=== PATIENT | male | born 1965 | race Caucasian/White ===

== ENCOUNTER 2019-07-07 06:18 | Day surgery (SDC) | payer BC ==
[~2019-07-07] VITALS: Ht 190.5 cm; Wt 200.1 kg
[~2019-07-07 06:18] MED LIST: ACET250 PO; CYAN100; Cafergot Table1 EACH PO; FISH1000; GABA600 PO; HYDMOR2 PO; MAGCHL64ER; Mobic15 MG PO; Multiple Vitam1 EAC1; NIAC250ER; OMEP20ER PO; Prednisone50 MG PO; Viagra100 MG
--- NOTE | 2019-07-07 07:51 | NUR ---
07/07/19 0751 Selwyn Michelle DISCHARGE INSTRUCTIONS REVIEWED WITH PT AND SPOUSE.PT RESTING COMFORTABLY WITH CALL LIGHT IN REACH.
--- NOTE | 2019-07-07 09:56 | NUR ---
07/07/19 0955 Avis Coelho PT TRANSFERRED INTO THE RECLINER WITH STAND BY ASSIST FROM RN. JAMES. PT IS ACCOMPANIED BY HIS . PT DENIES NAUSEA. PT RATES PAIN 2/10 AT THE OP SITE. POLAR UNIT IS ON AND RUNNING. PT IS TOLERATING PO FLUIDS AND SNACKS WELL.
== END 2019-07-07 10:45 | disposition home or self-care (01) ==
LOC: ORSCSDS 06:18
PROVIDERS: Orthopaedic Surgery
PROC: 0RNJ4ZZ Release Right Shoulder Joint, Percutaneous Endoscopic Approach (ICD-10-PCS; principal; 2019-07-07 07:30)
PROC: 0RQJ4ZZ Repair Right Shoulder Joint, Percutaneous Endoscopic Approach (ICD-10-PCS; principal; 2019-07-07 07:30)
DX: M75.41 Impingement syndrome of right shoulder (principal); S43.431A Superior glenoid labrum lesion of right shoulder, initial encounter; S46.111A Strain of muscle, fascia and tendon of long head of biceps, right arm, initial encounter; G47.33 Obstructive sleep apnea (adult) (pediatric); Z79.899 Other long term (current) drug therapy; K21.9 Gastro-esophageal reflux disease without esophagitis
CPT/HCPCS: J0171; J0690; J0696; J0735; J1100; J1885; J2250; J2405; J2704; J2710; J2795; J3010; J7120

== ENCOUNTER 2020-04-27 07:37 | Day surgery (SDC) | payer BC ==
[~2020-04-27] VITALS: Ht 190.5 cm; Wt 84.7 kg
== END 2020-04-27 10:08 | disposition home or self-care (01) ==
LOC: ORSCSDS 07:37
PROVIDERS: Student in an Organized Health Care Education/Training Program
PROC: 0DBH8ZX Excision of Cecum, Via Natural or Artificial Opening Endoscopic, Diagnostic (ICD-10-PCS; principal; 2020-04-27 09:00)
PROC: 0DBL8ZX Excision of Transverse Colon, Via Natural or Artificial Opening Endoscopic, Diagnostic (ICD-10-PCS; principal; 2020-04-27 09:00)
PROC: 0DBN8ZX Excision of Sigmoid Colon, Via Natural or Artificial Opening Endoscopic, Diagnostic (ICD-10-PCS; principal; 2020-04-27 09:00)
PROC: 0DBK8ZX Excision of Ascending Colon, Via Natural or Artificial Opening Endoscopic, Diagnostic (ICD-10-PCS; principal; 2020-04-27 09:00)
DX: Z12.11 Encounter for screening for malignant neoplasm of colon (principal); Z86.010 Personal history of colon polyps; D12.2 Benign neoplasm of ascending colon; D12.0 Benign neoplasm of cecum; D12.3 Benign neoplasm of transverse colon; K63.5 Polyp of colon; K64.8 Other hemorrhoids; G47.33 Obstructive sleep apnea (adult) (pediatric); Z85.46 Personal history of malignant neoplasm of prostate; F17.210 Nicotine dependence, cigarettes, uncomplicated; Z79.899 Other long term (current) drug therapy
CPT/HCPCS: 88305; J2704; J7120

== ENCOUNTER 2021-12-20 10:51 | Day surgery (SDC) | payer BC ==
[~2021-12-20] VITALS: Ht 190.5 cm; Wt 90.9 kg
[2021-12-20] MEDS ORDERED: CELECOXIB200 M1 PO (11:41)
[2021-12-20] MEDS ORDERED: OMEP20ER PO (11:41)
--- NOTE | 2021-12-20 14:07 | NUR ---
12/20/21 1407 Selwyn Michelle 1MG OF EPI ADDED TO EACH OF THE FIRST 3 BAGS OF LR USED FOR JOINT IRRIGATION.
== END 2021-12-20 15:51 | disposition home or self-care (01) ==
LOC: ORSCSDS 10:51
PROVIDERS: Orthopaedic Surgery
PROC: 0LU24JZ Supplement Left Shoulder Tendon with Synthetic Substitute, Percutaneous Endoscopic Approach (ICD-10-PCS; principal; 2021-12-20 12:30)
PROC: 0RNK4ZZ Release Left Shoulder Joint, Percutaneous Endoscopic Approach (ICD-10-PCS; principal; 2021-12-20 12:30)
PROC: 0LS44ZZ Reposition Left Upper Arm Tendon, Percutaneous Endoscopic Approach (ICD-10-PCS; principal; 2021-12-20 12:30)
PROC: 0LQ24ZZ Repair Left Shoulder Tendon, Percutaneous Endoscopic Approach (ICD-10-PCS; principal; 2021-12-20 12:30)
DX: M75.112 Incomplete rotator cuff tear or rupture of left shoulder, not specified as traumatic (principal); S46.002A Unspecified injury of muscle(s) and tendon(s) of the rotator cuff of left shoulder, initial encounter; M75.22 Bicipital tendinitis, left shoulder; M75.42 Impingement syndrome of left shoulder; G47.33 Obstructive sleep apnea (adult) (pediatric); K21.9 Gastro-esophageal reflux disease without esophagitis; G62.9 Polyneuropathy, unspecified; Z79.899 Other long term (current) drug therapy
CPT/HCPCS: A9270; C1713; J0171; J0690; J1100; J2250; J2405; J2704; J3010; J7060; J7120

== ENCOUNTER 2024-01-21 09:19 | Emergency (ER) | payer SELFPAY ==
[~2024-01-21] VITALS: Ht 190.5 cm; Wt 93.0 kg
[~2024-01-21 09:19] MED LIST changes: +CELECOXIB200 M1 PO; +Cyclobenzaprine5 MG; +ENBREL MIN50 MG/1 M1; +MELO7.5; +SILD50TA
[2024-01-21] MEDS ORDERED: Ketorolac Tromethamine 30mg Vial IV ONE (09:55)
[2024-01-21] MEDS ORDERED: Diazepam 5 MG / ML 2ML SYR IV ONE (09:55)
[2024-01-21] MEDS ORDERED: HYDROmorphone HCl/Pf 1MG SYR IV ONE (09:55)
[2024-01-21] MEDS ORDERED: Norco 10-325 T1 EACH PO (10:17)
[2024-01-21] MEDS ORDERED: Prednisone20 MG PO (10:17)
[2024-01-21] MEDS ORDERED: Robaxin750 MG PO (10:17)
[2024-01-21 11:15] VITALS: BP 109/70
== END 2024-01-21 11:39 | disposition home or self-care (01) ==
LOC: ER 09:19
DX: M54.50 Low back pain, unspecified (principal); G89.29 Other chronic pain; Z88.2 Allergy status to sulfonamides; Z79.899 Other long term (current) drug therapy
CPT/HCPCS: J1170; J1885; J3360

== ENCOUNTER 2025-02-16 14:09 | Emergency (ER) | payer SELFPAY ==
[~2025-02-16] VITALS: Ht 190.5 cm; Wt 90.7 kg
[~2025-02-16 14:09] MED LIST changes: +Norco 10-325 T1 EACH PO; +Prednisone20 MG PO; +Robaxin750 MG PO
[2025-02-16 15:12] LABS: BASOPHILS ABSOLUTE AUTO 0.05 K/mm3 (0.00-0.23); BASOPHILS PERCENT AUTO 1 % (0-2); EOSINOPHILS ABSOLUTE AUTO 0.10 K/mm3 (0.00-0.68); EOSINOPHILS PERCENT AUTO 1 % (0-6); Hematocrit 42.8 % (37.0-53.0); Hemoglobin 15.3 g/dL (13.5-17.5); IMMATURE GRAN ABSOLUTE AUTO 0.04 K/mm3 (0.00-0.10); IMMATURE GRAN PERCENT AUTO 1 % (0-1); LYMPHOCYTES ABSOLUTE AUTO 2.14 K/mm3 (0.84-5.20); LYMPHOCYTES PERCENT AUTO 29 % (21-46); MONOCYTES ABSOLUTE AUTO 0.95 K/mm3 (0.16-1.47); MONOCYTES PERCENT AUTO 13 % (4-13); Mean Corpuscular HGB Conc 35.7 g/dL (31.5-36.5); Mean Corpuscular Volume 91 fL (80-100); NEUTROPHILS ABSOLUTE AUTO 4.18 K/mm3 (1.96-9.15); NEUTROPHILS PERCENT AUTO 56 % (41-73); NRBC ABSOLUTE 0.00 K/mm3 (0.00-0.02); NRBC Auto 0.0 /100 WBC (0.0-0.2); RDW Coefficient Variation 12.3 % (11.7-14.2); RDW Standard Deviation 40.9 fL (35.1-46.3)
[2025-02-16 15:44] LABS: Alanine Aminotransfer (ALT/SGP 250.0 U/L (12-78); Albumin, Blood 4.3 g/dL (3.4-5.0); Albumin/Globulin Ratio 1.3 (0.8-1.8); Anion Gap 8.0 mmol/L (3-11); Aspartate Aminotrans (AST/SGOT 133.0 U/L (12-37); Bilirubin, Total 1.0 mg/dL (0.1-1.0); Blood Urea Nitrogen 12.0 mg/dL (8-24); CO2, Blood 26.0 mmol/L (21-32); Calcium, Blood 9.1 mg/dL (8.5-10.1); Chloride, Blood 105.0 mmol/L (98-108); Creatinine, Blood 0.66 mg/dL (0.60-1.20); Globulin, Blood 3.3 g/dL (2.2-4.0); Glucose, Blood 118.0 mg/dL (70-99); Potassium, Blood 3.8 mmol/L (3.5-5.5); Sodium, Blood 135.0 mmol/L (136-145); Total Protein, Blood 7.6 g/dL (6.4-8.2)
[2025-02-16 16:30] VITALS: BP 137/87
== END 2025-02-16 16:37 | disposition home or self-care (01) ==
LOC: ER 14:09
PROVIDERS: Emergency Medicine
DX: R00.2 Palpitations (principal); Z88.2 Allergy status to sulfonamides; Z79.899 Other long term (current) drug therapy
CPT/HCPCS: 71046; 80053; 83690; 84484; 85025

== ENCOUNTER 2025-04-24 06:11 | Day surgery (SDC) | payer BC ==
[~2025-04-24] VITALS: Ht 190.5 cm; Wt 89.2 kg
[2025-04-24] MEDS ORDERED: CeFAZolin Sodium 2,000 MG VIAL ONE (06:37)
[2025-04-24] MEDS ORDERED: FentaNYL Citrate 50 MCG/ML 2 ML Injection ONE (07:01)
[2025-04-24] MEDS ORDERED: Rocuronium Bromide 10 MG/ML 5ML Injection IV ONE (07:02)
[2025-04-24] MEDS ORDERED: Dexamethasone Sod Phos 10 MG/ML 1ML VIAL ONE (07:18)
[2025-04-24] MEDS ORDERED: Ondansetron HCl 2 MG / ML 2ML Vial ONE (07:18)
[2025-04-24] MEDS ORDERED: Midazolam HCl 1MG / ML 2ML Vial ONE (07:23)
[2025-04-24] MEDS ORDERED: Bupivacaine 0.5% HCl 5 MG/ML 30MLVIAL XX ONE (07:30)
[2025-04-24 08:12] VITALS: BP 115/78
--- NOTE | 2025-04-24 08:55 | NUR ---
04/24/25 08Latonia Sanchez PT RECEIVED A PAIN PILL, PER DOCTOR'S ORDERS. THIS RN ADMINISTERED 5MG OF OXYCODONE, PT WILL BE PRESCRIBED THAT FROM DR. MADRID. PT PLEASANT AND COOPERATIVE WITH CARE PROVIDED. PT STATED THAT HIS PAIN WAS PRIMARILY IN HIS LOWER BACK AND BETWEEN SHOUDLER BLADES. PT ABLE TO TOLERATE FLUIDS AND SNACKS WELL. PT HAS A STEADY GAIT. PT ASSISTED TO HIS PRIVATE VEHICLE, COLLECTED ALL BELONGINGS.
== END 2025-04-24 08:53 | disposition home or self-care (01) ==
LOC: ORSCSDS 06:11
PROVIDERS: Orthopaedic Surgery
PROC: 0LB70ZZ Excision of Right Hand Tendon, Open Approach (ICD-10-PCS; principal; 2025-04-24 07:30)
DX: M67.441 Ganglion, right hand (principal); G47.33 Obstructive sleep apnea (adult) (pediatric); Z79.899 Other long term (current) drug therapy; F17.220 Nicotine dependence, chewing tobacco, uncomplicated
CPT/HCPCS: 88304; A9270; J0690; J1100; J2003; J2250; J2405; J2704; J3010; J7120

== ENCOUNTER 2025-05-11 05:56 | Day surgery (SDC) | payer BC ==
[2025-05-11] VITALS (9 sets, daily range): BP systolic 128–185; BP diastolic 77–92
[~2025-05-11] VITALS: Ht 190.5 cm; Wt 87.7 kg
[~2025-05-11 05:56] MED LIST changes: -Cyclobenzaprine5 MG; +Cyclobenzaprine5 MG PO; -ENBREL MIN50 MG/1 M1; +ENBREL MIN50 MG/1 M1 SC; +FISH OIL 1,0001 EA10 PO; +MULTI-VITAMIN1 EAC2 PO; +NABU750 PO; +OXYC5 PO
--- NOTE | 2025-05-11 06:37 | NUR ---
History, Chart, Medications and Allergies reviewed before start of procedure. Lungs clear T/O to Auscultation. Patient confirms NPO status and agrees with scheduled surgery. Patient reports completing Chlorhexadine shower X2 prior to admission to hospital. Pre-Op teaching done. Pt verbalizes understanding.
[2025-05-11] MEDS ORDERED: FentaNYL Citrate 50 MCG/ML 2 ML Injection ONE (07:16)
[2025-05-11] MEDS ORDERED: Midazolam HCl 1MG / ML 2ML Vial ONE (07:16)
[2025-05-11] MEDS ORDERED: Bupivacaine 0.5% W/EPI 1:200000 SDV 30 ML Vial ONE (07:20)
[2025-05-11] MEDS ORDERED: Dexamethasone Sod Phos 10 MG/ML 1ML VIAL ONE (07:44)
[2025-05-11] MEDS ORDERED: Ondansetron HCl 2 MG / ML 2ML Vial ONE (07:44)
[2025-05-11] MEDS ORDERED: FentaNYL Citrate 50 MCG/ML 2 ML Injection IV PRN ×2 (08:20→08:25)
[2025-05-11] MEDS ORDERED: Ketorolac Tromethamine 30mg Vial ONE (08:20)
[2025-05-11] MEDS ORDERED: Ondansetron HCl 2 MG / ML 2ML Vial IV PRN (08:25)
[2025-05-11] MEDS ORDERED: HYDROmorphone HCl/Pf 1MG SYR IV PRN ×2 (08:25)
[2025-05-11] MEDS ORDERED: OxyCODONE 5 mg/Acetamin 325 mg TABLET PO PRN (09:00)
--- NOTE | 2025-05-11 09:44 | NUR ---
Discharge instructions reviewed with patient. Patient verbalizes understanding. Copy given to patient to take home. Patient up to Ambulate independently. Gait steady. Discharged via wheelchair to private car for ride home.
== END 2025-05-11 23:00 | disposition home or self-care (01) ==
LOC: ORSCMMR 05:56 → ORD 07:30 → ORSCMMR 07:30
PROVIDERS: Surgery
PROC: 0JBD0ZX Excision of Right Upper Arm Subcutaneous Tissue and Fascia, Open Approach, Diagnostic (ICD-10-PCS; principal; 2025-05-11 07:30)
PROC: 0JBH0ZX Excision of Left Lower Arm Subcutaneous Tissue and Fascia, Open Approach, Diagnostic (ICD-10-PCS; principal; 2025-05-11 07:30)
PROC: 0JBG0ZX Excision of Right Lower Arm Subcutaneous Tissue and Fascia, Open Approach, Diagnostic (ICD-10-PCS; principal; 2025-05-11 07:30)
DX: D17.22 Benign lipomatous neoplasm of skin and subcutaneous tissue of left arm (principal); D17.21 Benign lipomatous neoplasm of skin and subcutaneous tissue of right arm; R22.33 Localized swelling, mass and lump, upper limb, bilateral; G47.33 Obstructive sleep apnea (adult) (pediatric); K21.9 Gastro-esophageal reflux disease without esophagitis; Z85.46 Personal history of malignant neoplasm of prostate; M45.9 Ankylosing spondylitis of unspecified sites in spine; F17.220 Nicotine dependence, chewing tobacco, uncomplicated; Z79.899 Other long term (current) drug therapy
CPT/HCPCS: 88304; A9270; J1100; J1885; J2250; J2405; J2704; J3010; J7120